=== PATIENT | female | born 1960 | race Caucasian/White ===

== ENCOUNTER 2023-09-05 19:34 | Emergency (ER) | payer BC, SELFPAY ==
[2023-09-05 19:36] VITALS: BP 129/92
--- NOTE | 2023-09-05 20:33 | ED.GENMED ---
History of Present Illness
General
Chief Complaint: Oral/Mouth Problem
Source: patient
Exam Limitations: none
Time Seen by Provider: 09/05/23 20:25
Travel History
Have you had any contact with someone who has COVID-19?: No
Do you have any symptoms of coronavirus? Fever > 100 degrees, chills, cough, shortness of breath, sore throat, loss of taste or smell, muscle aches, or headache?: No
History of Present Illness
History of Present Illness:
See MDM
Past History
Past History
ED Past Medical History: Psychiatric
ED Past Surgical History: Other (dental)
Social History
Tobacco: Non-smoker
Alcohol: None
Phy Exam
Physical Exam
Physical Exam:
See MDM
Course
Vital Signs
Initial and Last Documented VS:
Initial Vital Signs
Temp Pulse Resp BP Pulse Ox
98.0 F 112 18 129/92 99
09/05/23 19:36 09/05/23 19:36 09/05/23 19:36 09/05/23 19:36 09/05/23 19:36
Last Documented Vital Signs
Temp Pulse Resp BP Pulse Ox
98.0 F 112 18 129/92 99
09/05/23 19:36 09/05/23 19:36 09/05/23 19:36 09/05/23 19:36 09/05/23 19:36
MDM/Problems Addressed
Differential Diagnosis Includes:
HPI and MDM Narrative:
62-year-old female presenting with right lower jaw pain. Patient recently had a bone graft to her right lower jaw. Patient is convinced that her jaw is falling apart and the implant will fall out.
Patient is very anxious and very emphatic that there is something wrong with her mouth. When I evaluated the area in question, there is no skin breakdown or exposed bone. Patient is persistent that there are pieces of bone coming out of her mouth.
I did explain to patient that I personally cannot see nor feel chips of bone.
I did also discuss with the patient that she should follow back with her oral surgeon. She states her surgeon would not see her anymore. Patient is requesting consult to the emergency department for oral surgery. I explained to patient that there
is no clinical evidence that would necessitate an emergency consult with oral surgery. Patient states she is going to leave the emergency department and find a emergency dental appointment.
Patient received verbal discharge instructions
Physical exam
General: Well appearing and non-toxic
HEENT: protecting airway. Right lower jaw gingiva without exposed bone or mucosal breakdown
Neck: appears supple
CV: No evidence of cyanosis
Resp: No accessory muscle use
Abd: Non-distended
Extremities: No deformities
Neuro: alert
Psych: Anxious
Skin: Intact
Problems Addressed including Acute and Chronic Conditions affecting care:
1. Dental pain
Acuity: acute
Prognosis: stable
Details: I discussed with patient that there is no evidence that her bone graft has fallen apart
Differential Diagnosis (but not limited to): Dental pain, osteomyelitis
Testing considered: Jaw CT
Drug therapy (if applicable): OTC meds, please see d/c instruction regarding Rx drugs
Amount and/or Complexity of Data Reviewed
Clinical info obtained from: Patient
External data reviewed: N/A
Labs I independently reviewed (but not limited to): N/A
Radiology: N/A
Pulse Ox: not hypoxic
EKG independently reviewed: N/A
Geographic Information Systems Analyst: N/A
Critical Care: N/A
Risk of Complication:
Social Determinants of health: Good social support
Discussed with other providers: N/A
Escalation of Care includes Admit/Obs: After being observed in the Emergency Department, pt stable for discharge.
Occasional wrong word or 'sound a like' substitutions may have occurred due to the inherent limitations of voice recognition software. Read the chart carefully and recognize, using context, where substitutions have occurred.
*Critical Care Note
Total Time (30-74mins, 75-104mins- exclusive of procedures): Not Applicable
ED Attending Note
-
Portions of this chart may have been created with voice recognition software.� Occasional wrong word or��sound alike� substitutions may have occurred due to the inherent limitations of voice recognition software.
Discharge Plan
Departure
Patient Disposition: Home (Routine Discharge)
Date of Disposition: 09/05/23
Time of Disposition: 20:33
Patient with high blood pressure during this ER visit?: No
Discharge Problem:
Dental implant pain
Prescriptions:
No Action
alprazolam 1 MG tablet
1 mg PO TID
phenylephrine HCl 15 ML drops
1 dose intranasal DAILY
acetaminophen [Tylenol Extra Strength] 500 MG tablet
500 mg PO PRN PRN (Reason: pain)
Diphenhydramine HCl/Zinc Acet
topical DAILY PRN (Reason: itching)
Interventions
Interventions:
*Risk Screen - Suicide Last Done: 09/05/23 19:36
*General Assessment Last Done: 09/05/23 19:36
*Neglect/Abuse Screening Last Done: 09/05/23 19:36
*ED COVID-19 Vaccine History Last Done: 09/05/23 19:36
== END 2023-09-05 20:45 | disposition home or self-care (01) ==
LOC: EMR 19:34
PROVIDERS: EMERGENCY PHYSICIAN Student in an Organized Health Care Education/Training Program
DX: M27.69 Other endosseous dental implant failure (principal)
CPT/HCPCS: 99281